=== PATIENT | male | born 1965 | race Caucasian/White ===

== ENCOUNTER 2017-02-10 16:08 | Emergency (ER) | payer OTHER ==
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
== END 2017-02-10 17:10 ==
LOC: JD.ED 16:08
CPT/HCPCS: 99283

== ENCOUNTER 2017-05-11 08:57 | Emergency (ER) | payer SELFPAY ==
[2017-05-11 09:07] VITALS: BP 181/101
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
== END 2017-05-11 09:50 | disposition home or self-care (01) ==
LOC: JD.ED 08:57
DX: K04.7 Periapical abscess without sinus (principal); K02.9 Dental caries, unspecified; E66.9 Obesity, unspecified; F17.210 Nicotine dependence, cigarettes, uncomplicated; Z68.41 Body mass index [BMI] 40.0-44.9, adult; Z79.82 Long term (current) use of aspirin
CPT/HCPCS: 99283